=== PATIENT | male | born 1995 | race American Indian/Alaskan Native ===

== ENCOUNTER 2018-04-16 18:30 | Emergency (ER) | payer SELFPAY ==
[2018-04-16 18:38] VITALS: BP 130/74; PULSE 79; RESP 17; TEMP 97.7; O2SAT 100
--- NOTE | 2018-04-16 18:51 | C.PDOC ---
History Of Present Illness 22 year old male with no PMHx presents to the emergency with complaints of rash to his genital area for the last 1 day. Patient describes the rash as itchy, white areas on his penis and scrotum, associated with intermittent left testicle pain without testicular redness or swelling. He states that he has some STD concern, but denies penile discharge, fever, chills, abdominal pain, back pain, urinary symptoms, or any other associated symptoms. Time Seen by Provider: 04/16/18 18:36 Chief Complaint (Nursing): Abnormal Skin Integrity History Per: Patient History/Exam Limitations: no limitations Onset/Duration Of Symptoms: Days (1) Current Symptoms Are (Timing): Still Present Quality Of Symptoms: Itching. denies: Swollen, Other (erythema) Past Medical History Reviewed: Historical Data, Nursing Documentation, Vital Signs Vital Signs: Last Vital Signs Temp 97.7 F 04/16/18 18:35 Pulse 79 04/16/18 18:35 Resp 17 04/16/18 18:35 BP 130/74 04/16/18 18:35 Pulse Ox 100 04/16/18 18:35 - Medical History PMH: No Chronic Diseases Surgical History: No Surg Hx Family History: States: No Known Family Hx - Social History Hx Alcohol Use: Yes Hx Substance Use: Yes - Immunization History Hx Tetanus Toxoid Vaccination: (unk) Hx Influenza Vaccination: No Hx Pneumococcal Vaccination: (unk) Review Of Systems Except As Marked, All Systems Reviewed And Found Negative. Constitutional: Negative for: Fever, Chills Eyes: Negative for: Vision Change ENT: Negative for: Throat Pain Cardiovascular: Negative for: Chest Pain, Palpitations Respiratory: Negative for: Cough, Shortness of Breath Gastrointestinal: Negative for: Nausea, Vomiting, Abdominal Pain, Diarrhea, Constipation, Rectal Pain Genitourinary: Positive for: Hematuria, Rash, Other (left testicular pain). Negative for: Dysuria, Frequency, Incontinence, Penile Discharge, Scrotal Pain, Penile Pain Musculoskeletal: Negative for: Neck Pain, Back Pain, Leg Pain Neurological: Negative for: Weakness, Numbness, Headache, Dizziness Physical Exam - Physical Exam Appears: Well, Non-toxic, No Acute Distress Skin: Warm, Dry Head: Atraumatic, Normacephalic Eye(s): bilateral: Normal Inspection, PERRL, EOMI Nose: Normal Oral Mucosa: Moist Neck: Normal, Normal ROM, Supple Lymphatic: Normal Exam Chest: Symmetrical, No Tenderness Cardiovascular: Rhythm Regular, No Murmur Respiratory: Normal Breath Sounds, No Rales, No Rhonchi, No Wheezing Gastrointestinal/Abdominal: Normal Exam, Bowel Sounds (normoactive), Soft, No Tenderness, No Distention, No Guarding, No Rebound Back: Normal Inspection Male Genital: No Testicular Tenderness, No Testicular Swelling, No Inguinal Tenderness, No Inguinal Swelling, No Scrotal Swelling, Other (areas of white scaling with intermittent bumps to posterior aspect of penis and anterior scrotum with mild underlying erythema; no discrete lesions or areas of ulceration) Extremity: Normal ROM, No Tenderness, Capillary Refill (<2s), No Swelling Extremity: Bilateral: Atraumatic, No Pedal Edema, Normal Color And Temperature, Normal ROM Pulses: Left Radial: Normal, Right Radial: Normal, Left Dorsalis Pedis: Normal, Right Dorsalis Pedis: Normal Neurological/Psych: Oriented x3, Normal Speech, Normal Cognition, Normal Motor, Normal Sensation Gait: Steady ED Course And Treatment O2 Sat by Pulse Oximetry: 100 (RA) Pulse Ox Interpretation: Normal - CT Scan/US US Testes Other Rad Studies (CT/US): Read By Radiologist, Radiology Report Reviewed CT/US Interpretation: Impression. 1. Left epididymal cyst. 2. Bilateral small hydroceles. Medical Decision Making Medical Decision Making: Plan: * Chlamydia GC/RNA * Urinalysis * US Testes Secondary to concern for STI, will empirically treat for GC/Chlamydia. Rash suspicious for tinea cruris. Will treat with clotrimazole cream. Patient instructed to followup with primary or clinic and return if symptoms persist or worsen. Plan of care discussed with patient, and strict instructions given regarding prescriptions, importance of follow up, and signs to return to Emergency Department, to include fever, chills, worsening pain, spreading rash, or any other new/worsening symptoms. Patient verbalizes understanding of discussion. Patient A&Ox3, ambulating with steady gait, stable for discharge home. Disposition - Disposition Referrals: [facility] [Outside] Disposition: HOME/ ROUTINE Disposition Time: 18:25 Condition: STABLE Additional Instructions: Apply cream twice daily for 4 weeks Followup with clinic or primary doctor within 2 days Return to ER with any new/worsening symptoms Prescriptions: Clotrimazole 1% [Lotrimin AF 1%] 1 applic TD Q12H #1 bottle Instructions: [facility] (DC) Forms: General Discharge Instructions, [facility] (Yi), Work Excuse - Clinical Impression Clinical Impression: Tinea cruris
[2018-04-16 19:07] LABS: SQUAMOUS EPITHIAL < 1 /hpf (0-5); URINE BACTERIA RARE (<OCC); URINE BILIRUBIN NEGATIVE (NEGATIVE); URINE BLOOD NEGATIVE (NEGATIVE); URINE CLARITY Clear (Clear); URINE COLOR Yellow (YELLOW); URINE GLUCOSE (UA) NORMAL (Normal); URINE LEUKOCYTE ESTERASE NEG Leu/uL (Negative); URINE PROTEIN NEGATIVE (NEGATIVE); URINE UROBILINOGEN NORMAL mg/dL (0.2-1.0)
[2018-04-16] MEDS: cefTRIAXone (Rocephin) 250 mg Inj IM STA (21:41)
--- NOTE | 2018-04-17 10:04 | US ---
Date of service: 04/16/2018 HISTORY: testicular pain TECHNIQUE: Realtime sonography through the scrotum with color and doppler flow. COMPARISON: None Available. FINDINGS: RIGHT TESTICLE: Measures 4.1 x 2.0 x 2.7 cm. Normal echotexture and flow. RIGHT EPIDIDYMIS: Epididymal head measures 1.0 x 0.7 x 1.2 cm. Grossly unremarkable appearance with normal flow. LEFT TESTICLE: Measures 4.3 x 1.8 x 2.4 cm. Normal echotexture and flow. LEFT EPIDIDYMIS: Epididymal head measures 1.65 x 0.75 x 1.52 cm. There is a 7 x 5 x 9 mm complicated cyst in the head of the epididymis. Grossly unremarkable appearance with normal flow. HYDROCELE: There are bilateral small hydroceles. VARICOCELE: None. OTHER FINDINGS: None. IMPRESSION: No evidence for testicular mass, torsion or epididymo-orchitis. 9 mm complicated cyst in the head of the left epididymis. Small bilateral hydroceles. A preliminary report was provided by [facility].
== END 2018-04-16 21:50 | disposition home or self-care (01) ==
LOC: C.ER 18:30
DX: B35.6 Tinea cruris (principal)
CPT/HCPCS: 81001; 87086; 87491; 87591; 93975; 96372; 99283; J0696